=== PATIENT | male | born 1945 | race Caucasian/White ===

== ENCOUNTER → 2023-11-03 11:50 | Outpatient (REF) | payer MEDICARE, SELFPAY | LOC: HWRAD 11:50 | PROVIDERS: ATTENDING PHYSICIAN Family Medicine | DX: R05.1 Acute cough (principal); R06.2 Wheezing | CPT/HCPCS: 71046 ==

== ENCOUNTER → 2023-11-10 09:07 | Outpatient (REF) | payer MEDICARE, SELFPAY | LOC: HWRAD 09:07 | PROVIDERS: ATTENDING PHYSICIAN Family Medicine | DX: R91.8 Other nonspecific abnormal finding of lung field (principal) | CPT/HCPCS: 71270; Q9967 ==

== ENCOUNTER → 2023-11-29 09:57 | Outpatient (REF) | payer MEDICARE, SELFPAY | LOC: PET 09:57 | PROVIDERS: ATTENDING PHYSICIAN Family Medicine | DX: R91.8 Other nonspecific abnormal finding of lung field (principal) | CPT/HCPCS: 78815; A9552 ==

== ENCOUNTER → 2023-12-12 15:51 | Outpatient (REF) | payer MEDICARE, SELFPAY | LOC: HWRCS 15:51 | PROVIDERS: ATTENDING PHYSICIAN Physician Assistant | DX: R59.0 Localized enlarged lymph nodes (principal) | CPT/HCPCS: 93306 ==

== ENCOUNTER → 2023-12-15 07:54 | Outpatient (REF) | payer MEDICARE, SELFPAY | LOC: HWRAD 07:54 | PROVIDERS: ATTENDING PHYSICIAN Internal Medicine Hematology & Oncology; FAMILY PHYSICIAN Family Medicine | DX: C34.11 Malignant neoplasm of upper lobe, right bronchus or lung (principal) | CPT/HCPCS: 70470; Q9967 ==

== ENCOUNTER 2023-12-20 06:09 | Day surgery (SDC) | payer MEDICARE, SELFPAY ==
[2023-12-20] VITALS (11 sets, daily range): BP systolic 96–158; BP diastolic 51–72; BMI 27.5
[2023-12-20 07:37] LABS: Glucose - Point of Care 136 mg/dl (70-99)
[2023-12-20 09:13] LABS: Glucose - Point of Care 119 mg/dl (70-99)
== END 2023-12-20 11:11 | disposition home or self-care (01) ==
LOC: SDS 06:09
PROVIDERS: ATTENDING PHYSICIAN Internal Medicine Critical Care Medicine
DX: C34.31 Malignant neoplasm of lower lobe, right bronchus or lung (principal); J98.4 Other disorders of lung; R94.2 Abnormal results of pulmonary function studies; R93.89 Abnormal findings on diagnostic imaging of other specified body structures; R59.0 Localized enlarged lymph nodes; R05.3 Chronic cough
CPT/HCPCS: 31653; 31625; 31624; 31623; 31628; 88172; 88173; 88305; 71045; 82962; 87015; 87070; 87102; 87116; 87205; 88112; 88341; 88342

== ENCOUNTER → 2024-01-05 08:30 | Outpatient (REF) | payer MEDICARE, SELFPAY | LOC: HWRCS 08:30 | PROVIDERS: ATTENDING PHYSICIAN Internal Medicine Hematology & Oncology; FAMILY PHYSICIAN Family Medicine; PRIMARYCARE PHYSICIAN Family Medicine; REFERRING PHYSICIAN Physician Assistant | DX: C34.11 Malignant neoplasm of upper lobe, right bronchus or lung (principal) | CPT/HCPCS: 93308 ==

== ENCOUNTER → 2025-02-06 08:29 | Outpatient (REF) | payer MEDICARE, SELFPAY | LOC: PAVMRI 08:29 | PROVIDERS: ATTENDING PHYSICIAN Internal Medicine Hematology & Oncology; FAMILY PHYSICIAN Family Medicine | DX: C34.31 Malignant neoplasm of lower lobe, right bronchus or lung (principal); C79.51 Secondary malignant neoplasm of bone | CPT/HCPCS: 70553; A9575 ==

== ENCOUNTER → 2025-02-12 08:05 | Outpatient (REF) | payer MEDICARE, SELFPAY | LOC: RAD 08:05 | PROVIDERS: ATTENDING PHYSICIAN Internal Medicine Hematology & Oncology; FAMILY PHYSICIAN Family Medicine | DX: C34.31 Malignant neoplasm of lower lobe, right bronchus or lung (principal); C79.51 Secondary malignant neoplasm of bone | CPT/HCPCS: 71260; Q9967 ==